=== PATIENT | male | born 1990 | race Caucasian/White ===

== ENCOUNTER 2022-08-21 22:14 | Emergency (ER) | payer OTHER ==
[2022-08-22 00:08] LABS: HEMOGLOBIN 14.3 gm/dl (14.0-17.5); RED BLOOD COUNT 4.5 M/UL (4.20-5.50); WHITE BLOOD COUNT 10.6 K/UL (4.5-11.0)
[2022-08-22 00:31] LABS: BUN/CREATININE RATIO 25 (0-10)
[2022-08-22] MEDS ORDERED: ZOFRAN ODT 4 MG4 MG SL (01:50)
== END 2022-08-22 02:05 | disposition home or self-care (01) ==
LOC: ER1 22:14
PROVIDERS: Family Medicine
DX: K52.9 Noninfective gastroenteritis and colitis, unspecified (principal); F17.200 Nicotine dependence, unspecified, uncomplicated
CPT/HCPCS: 36430; 80053; 81001; 83690; 85025; 99284; P9016